=== PATIENT | female | born 1955 | race American Indian/Alaskan Native ===

== ENCOUNTER 2020-11-10 08:49 | Inpatient (IN) | payer OTHER ==
[2020-11-10] MEDS ORDERED: SODIUM CHLORIDE 0.9% 1000 ML 1,000 ML IV ONE ×2 (09:33)
[2020-11-10] MEDS ORDERED: ONDANSETRON 4 MG/2 ML INJ IV ONE (09:34)
--- NOTE | 2020-11-10 09:39 | Emergency Department Report ---
HPI - General Chief Complaint: Altered Mental Status Time Seen by Provider: 11/10/20 09:22 - HPI HPI: Room 21 The patient is a 65-year-old female present with a chief complaint of "thirst." The patient states she came to the emergency department because she has been thirsty since yesterday. Patient admits to nausea and vomiting. Patient states her daughter found her on the floor this morning. The patient states she remembers going to sleep last night and this morning she remembers waking up with her daughter standing over her. Patient states she is amnestic to the event. Patient admits to polydipsia but denies polyuria. Patient states she carries a diagnosis of prediabetes. ED Past Medical Hx - Past Medical History Previous Medical History?: Yes Hx Hypertension: Yes Hx Diabetes: No (Prediabetes) Hx of Cancer: Yes (Throat CA status post chemo) Hx Dementia: Yes - Surgical History Past Surgical History?: No - Family History Family history: no significant - Social History Smoking Status: Current Every Day Smoker (1 pack/day) Substance Use Type: None (Denies illicit drug use) - Medications Home Medications: Home Medications Medication Instructions Recorded Confirmed Last Taken Type Levothyroxine Sodium 75 mcg PO QAM 11/10/20 11/10/20 Unknown History Losartan Potassium 25 mg PO QDAY 11/10/20 11/10/20 Unknown History Rosuvastatin Calcium [Crestor] 40 mg PO QDAY 11/10/20 11/10/20 Unknown History amLODIPine [Norvasc] 10 mg PO DAILY 11/10/20 11/10/20 Unknown History hydroCHLOROthiazide [Hctz] 12.5 mg PO QDAY 11/10/20 11/10/20 Unknown History ED Review of Systems ROS: Stated complaint: AMS Other details as noted in HPI Constitutional: no symptoms reported Eyes: denies: eye pain ENT: denies: throat pain Respiratory: denies: shortness of breath Cardiovascular: denies: chest pain Endocrine: increased thirst. denies: increased urine Gastrointestinal: nausea, vomiting. denies: abdominal pain Genitourinary: denies: dysuria Musculoskeletal: denies: back pain Neurological: denies: headache Physical Exam - Physical Exam Vital Signs: Vital Signs 11/10/20 11/10/20 09:30 09:31 Temperature 98.2 F Pulse Rate 115 H Respiratory 24 Rate Blood Pressure 168/91 [Left] O2 Sat by Pulse 100 100 Oximetry Vital Signs 11/10/20 11/10/20 11/10/20 09:12 09:16 09:30 Temperature 98.2 F Pulse Rate 113 H 108 H 115 H Respiratory 26 H 26 H 24 Rate Blood Pressure 168/91 Blood Pressure 168/91 [Left] O2 Sat by Pulse 99 100 100 Oximetry 11/10/20 11/10/20 09:31 10:16 Temperature Pulse Rate 117 H Respiratory 22 Rate Blood Pressure 142/97 Blood Pressure [Left] O2 Sat by Pulse 100 100 Oximetry Physical Exam: GENERAL: The patient is well-developed well-nourished female lying on stretcher appearing fatigued but in no acute distress. [] HEENT: Normocephalic. Atraumatic. Extraocular motions are intact. NECK: Supple. Trachea midline CHEST/LUNGS: Clear to auscultation. There is no respiratory distress noted. HEART/CARDIOVASCULAR: Regular. There is tachycardia. There is no gallop rub or murmur. ABDOMEN: Abdomen is soft, nontender. Patient has normal bowel sounds. There is no abdominal distention. SKIN: There is no rash. There is no edema. There is no diaphoresis. NEURO: The patient is asleep but easily awakens to voice and becomes alert, and oriented. The patient is cooperative. The patient has no focal neurologic deficits. The patient has normal speech. GCS 14 MUSCULOSKELETAL: There is no evidence of acute injury. ED Course Vital Signs 11/10/20 11/10/20 09:30 09:31 Temperature 98.2 F Pulse Rate 115 H Respiratory 24 Rate Blood Pressure 168/91 [Left] O2 Sat by Pulse 100 100 Oximetry - Consultations Consultation #1: 11/10/20 12:33 [facility] paged 11/10/20 12:41 Case discussed with [facility] physician Dr. Brambila- may admit patient here at [facility] ED Medical Decision Making - Lab Data Result diagrams: 11/10/20 11:06 11/10/20 11:06 Laboratory Tests 11/10/20 11/10/20 11/10/20 08:57 11:06 11:06 WBC 14.6 H RBC 4.51 Hgb 12.1 Hct 38.0 MCV 84 MCH 27 L MCHC 32 RDW 19.4 H Plt Count 16 L* VBG pH Sodium 132 L Potassium 2.9 L* Chloride 88.0 L Carbon Dioxide 11 L Anion Gap 36 BUN 29 H Creatinine 1.6 H Estimated GFR 39 BUN/Creatinine Ratio 18 Glucose 587 H* POC Glucose 454 H Calcium 9.4 Total Bilirubin 4.10 H AST 59 H ALT 17 Alkaline Phosphatase 121 Total Creatine Kinase 315 H CK-MB (CK-2) 11.1 H CK-MB (CK-2) Rel Index 3.5 Troponin T 0.771 H* Total Protein 7.2 Albumin 4.5 Albumin/Globulin Ratio 1.7 Triglycerides 167 H Cholesterol 133 LDL Cholesterol Direct 71 HDL Cholesterol 52 Cholesterol/HDL Ratio 2.55 Lipase 46 11/10/20 11:06 WBC RBC Hgb Hct MCV MCH MCHC RDW Plt Count VBG pH 7.197 L* Sodium Potassium Chloride Carbon Dioxide Anion Gap BUN Creatinine Estimated GFR BUN/Creatinine Ratio Glucose POC Glucose Calcium Total Bilirubin AST ALT Alkaline Phosphatase Total Creatine Kinase CK-MB (CK-2) CK-MB (CK-2) Rel Index Troponin T Total Protein Albumin Albumin/Globulin Ratio Triglycerides Cholesterol LDL Cholesterol Direct HDL Cholesterol Cholesterol/HDL Ratio Lipase - EKG Data -: EKG Interpreted by In EKG shows normal: sinus rhythm Rate: tachycardia (107 bpm) - EKG Data When compared to previous EKG there are: previous EKG unavailable Interpretation: other (No ischemic changes seen) - Radiology Data Radiology results: report reviewed (CT head), image reviewed (CT head) [facility] [address] [place] [address] Cat Scan Report Signed Patient: DONN MARTINEZ MR#: [id number] : 1955 Acct:[id number] Age/Sex: 65 / F ADM Date: 11/10/20 Loc: ED Attending Dr: Ordering Physician: BARBRA HUNTLEY MD Date of Service: 11/10/20 Procedure(s): CT head/brain wo con Accession Number(s): [id number] cc: BARBRA HUNTLEY MD CT HEAD WITHOUT CONTRAST INDICATION / CLINICAL INFORMATION: Found on floor, amnestic to event. TECHNIQUE: Axial imaging performed from the skull apex through the skull base without the use of contrast. Sagittal and coronal reformatted images. All CT scans at this location are performed using CT dose reduction for ALARA by means of automated exposure control. COMPARISON: None available. FINDINGS: CEREBRAL PARENCHYMA: No significant abnormality. No acute territorial infarct. HEMORRHAGE: None. EXTRA-AXIAL SPACES: Normal in size and morphology for the patient's age. VENTRICULAR SYSTEM: Normal in size and morphology for the patient's age. MIDLINE SHIFT OR HERNIATION: None. CEREBELLUM / BRAINSTEM: No significant abnormality. CALVARIUM: No significant abnormality. ORBITS: Normal as visualized. PARANASAL SINUSES / MASTOID AIR CELLS: Normal as visualized. SOFT TISSUES of HEAD: No significant abnormality. ADDITIONAL FINDINGS: None. IMPRESSION: No acute intracranial abnormality. Signer Name: Martín Oneal Jr, MD Signed: 11/10/2020 10:49 AM Workstation Name: [id number] Transcribed By: TTR Dictated By: MARTÍN ONEAL JR, MD Electronically Authenticated By: MARTÍN ONEAL JR, MD Signed Date/Time: 11/10/20 104 DD/ 1048 TD/TT: Print Cancel - Differential Diagnosis Syncope, DKA, dehydration, electrolyte imbalance, gastritis, Critical care attestation.: If time is entered above; I have spent that time in minutes in the direct care of this critically ill patient, excluding procedure time. ED Disposition Clinical Impression: DKA (diabetic ketoacidosis), Thrombocytopenia, Elevated troponin Disposition: OP ADMIT IP TO THIS HOSP Is pt being admited?: Yes Does the pt Need Aspirin: Yes Condition: Stable Instructions: Diabetic Ketoacidosis (ED) Referrals: [facility] [Other] - 3-5 Days Time of Disposition: 12:42 (Hospitalist paged (Dr. Schaffer))
--- NOTE | 2020-11-10 10:53 | Cat Scan Report ---
CT HEAD WITHOUT CONTRAST INDICATION / CLINICAL INFORMATION: Found on floor, amnestic to event. TECHNIQUE: Axial imaging performed from the skull apex through the skull base without the use of cont rast. Sagittal and coronal reformatted images. All CT scans at this location are performed using CT dose reduction for ALARA by means of automated exposure control. COMPARISON: None available. FINDINGS: CEREBRAL PARENCHYMA: No significant abnormality. No acute territorial infarct. HEMORRHAGE: None. EXTRA-AXIAL SPACES: Normal in size and morphology for the patient's age. VENTRICULAR SYSTEM: Normal in size and morphology for the patient's age. MIDLINE SHIFT OR HERNIATION: None. CEREBELLUM / BRAINSTEM: No significant abnormality. CALVARIUM: No significant abnormality. ORBITS: Normal as visualized. PARANASAL SINUSES / MASTOID AIR CELLS: Normal as visualized. SOFT TISSUES of HEAD: No significant abnormality. ADDITIONAL FINDINGS: None. IMPRESSION: No acute intracranial abnormality. Signer Name: Martín Oneal Jr, MD Signed: 11/10/2020 10:49 AM Workstation Name: [id number]
[2020-11-10 11:47] LABS: Albumin 4.5 g/dL (3.9-5); Calcium 9.4 mg/dL (8.4-10.2); Creatine Kinase MB 11.1 ng/mL (0.0-4.0)
[2020-11-10 11:54] LABS: Hemoglobin 12.1 gm/dl (10.1-14.3); Mean Corpuscular HGB Conc 32 % (30-34); Mean Corpuscular Volume 84 fl (79-97); Red Blood Count 4.51 M/mm3 (3.65-5.03); Red Cell Distribution Width 19.4 % (13.2-15.2)
[2020-11-10] MEDS ORDERED: POTASSIUM CHLORIDE ER 20 MEQ TAB PO ONE (11:55)
[2020-11-10 12:06] LABS: Platelet Count 16 K/mm3 (140-440)
[2020-11-10 12:11] LABS: Chol/HDL Ratio 2.55 %
[2020-11-10] MEDS: POTASSIUM CHLORIDE 10 MEQ 10 MEQ/100 ML BAG IV SCH ×3 (12:17→14:20)
[2020-11-10] MEDS ORDERED: ASPIRIN 325 MG TAB PO ONE (12:42)
[2020-11-10] MEDS ORDERED: LIDOCAINE PF 100 MG/5 ML (CARDIAC SYRINGE) IV ONE (13:00)
[2020-11-10] MEDS ORDERED: EPINEPHrine 1 MG/10 ML SYRINGE ONE (13:00)
[2020-11-10] MEDS ORDERED: SODIUM BICARB 8.4% 50 MEQ/50 ML SYRINGE IV ONE (13:00)
[2020-11-10] MEDS ORDERED: INSULIN REGULAR, HUMAN 100 UNITS in SODIUM CHLORIDE 0.9% 99 ML IV SCH (13:00)
[2020-11-10] MEDS ORDERED: ATROPINE 0.1% (1 MG/10 ML) CARDIAC SYRINGE ONE (13:00)
[2020-11-10 13:23] LABS: Anisocytosis 1+; Band Neutrophils # (Manual) 0.6 K/mm3; Schistocytes Few; Total Cells Counted 100
[2020-11-10 13:24] LABS: Platelet Estimate Consistent w Auto
[2020-11-10 13:35] LABS: Bacteria,Urine 1+ /HPF (Negative); Bilirubin,Urine NEG (Negative); Blood,Urine LG (Negative); Color,Urine Amber (Yellow); Hyaline Casts,Urine 1 /LPF; Mucus,Urine FEW /HPF; Protein,Urine >500 mg/dL (Negative); Urobilinogen,Urine < 2.0 mg/dL (<2.0)
[2020-11-10] MEDS ORDERED: ETOMIDATE 20 MG/10 ML INJ IV ONE (14:46)
[2020-11-10] MEDS ORDERED: NORepinephrine/NS 4 MG-250 ML 4 MG/250 ML BAG IV ONE (15:34)
--- NOTE | 2020-11-10 15:34 | Event Note ---
Date: 11/10/20 Informed by nursing that the patient has become less responsive. As I enter the room the patient is grossly obtunded and does not respond to sternal rub. Patient bradycardic to 24 on the monitor. Patient was intubated by myself without meds as paralysis was not necessary. Patient then found to be in PEA. ACLS protocols were initiated. Patient received several rounds epinephrine and was defibrillated x1 with eventual return of spontaneous circulation. Hospitalist (Dr. Schaffer) was notified. Given patient's thrombocytopenia and change in mental status will order a CT head. This is discussed with Dr. Schaffer who states he will follow up on the results of the CAT scan Intubation note Consent was unobtainable due to patient condition Preoxygenation with 100% oxygen A size 7.0 mm ET tube was inserted orally on second attempt There was symmetric chest rise and bilateral breath sounds post intubation A CO2 indicator was used for confirmation and resulted in positive CO2 return Pulse oximetry post intubation was 90 ET tube was taped at 21 cm at the lips Post intubation chest x-ray confirmed good tube location The patient tolerated the procedure well There were no complications
--- NOTE | 2020-11-10 15:37 | Event Note ---
Date: 11/10/20 EDMD CODE BLUE note Patient became bradycardic and then PEA. ACLS protocols were reinitiated with eventual return of spontaneous circulation. Central line was placed by myself and the patient started on dopamine and Levophed. This was discussed with hospitalist Dr. Schaffer. Consent obtained Location: Right femoral The skin was prepped and draped in a sterile fashion. The skin and subcutaneous tissue was anesthetized with 1% lidocaine The needle was inserted blood was aspirated after first attempt Using the Seldinger technique a guidewire was inserted. A small incision was made and a dilator was placed. Blood return was good from all 3 ports. All ports were flushed with saline. The central venous line was secured in place with Sterile OpSite dressing was applied The patient tolerated the procedure well There were no complications
[2020-11-10] MEDS ORDERED: SODIUM CHLORIDE 0.9% 1000 ML 1,000 ML ONE (15:43)
--- NOTE | 2020-11-10 15:57 | Event Note ---
Date: 11/10/20 EDMD CODE BLUE note The patient again arrested and was found to be in asystole. ACLS protocols were continued however there was no return of spontaneous circulation. Patient .
[2020-11-10] MEDS ORDERED: NORepinephrine/NS 4 MG-250 ML 4 MG/250 ML BAG IV SCH (16:00)
[2020-11-10] MEDS ORDERED: DOPamine/D5W 800 MG/250 ML 800 MG/250 ML BAG IV SCH (16:00)
[2020-11-10] MEDS ORDERED: METOCLOPRAMIDE 10 MG/2 ML INJ IV PRN (17:51)
[2020-11-10 18:30] VITALS: BP 59/44
[2020-11-10] MEDS ORDERED: ACETAMINOPHEN 650 MG RECT SUPP PR PRN (18:30)
[2020-11-10] MEDS ORDERED: MORPHINE 2 MG/1 ML INJ IV PRN (18:30)
[2020-11-10] MEDS ORDERED: SODIUM CHLORIDE 0.9% 1000 ML 1,000 ML IV SCH (18:30)
[2020-11-10] MEDS ORDERED: HYDROmorphone 1 MG/1 ML INJ IV PRN (18:30)
--- NOTE | 2020-11-10 20:30 | History and Physical Report ---
History of Present Illness Date of examination: 11/10/20 Date of admission: 11/10/20 12:47 Chief complaint: Severe weakness and increased thirst and nausea vomiting for couple of days History of present illness: You do not have to copy them again [age]-year-old -[place] female with history of hypertension and hyperlipidemia has not been feeling well for the past 1 week. Patient has increased thirst and feeling very weak. Patient also has stable generalized weakness. Patient admits to nausea and vomiting. Patient was found on the floor by the daughter daughter brings her in. Patient is very noncompliant and does not see any primary care. Patient does not know that she has diabetes. No fever or chills. Altered sensorium and confusion present. Patient being admitted for high blood glucose levels of around 587. Patient looks emaciated and very ill. Summary of emergency Previous Medical History?: Yes --Hypertension: Yes --Diabetes: No (Prediabetes) --Throat cancer --Dementia: Yes - Surgical History Past Surgical History?: No - Family History Family history: no significant - Social History Smoking Status: Current Every Day Smoker (1 pack/day) Substance Use Type: None (Denies illicit drug use) - Medications Home Medications: Home Medications Medication Instructions Recorded Confirmed Last Taken Type Levothyroxine Sodium 75 mcg PO QAM 11/10/20 11/10/20 Unknown History Losartan Potassium 25 mg PO QDAY 11/10/20 11/10/20 Unknown History Rosuvastatin Calcium [Crestor] 40 mg PO QDAY 11/10/20 11/10/20 Unknown History amLODIPine [Norvasc] 10 mg PO DAILY 11/10/20 11/10/20 Unknown History hydroCHLOROthiazide [Hctz] 12.5 mg PO QDAY 11/10/20 11/10/20 Unknown History Review of Systems ROS: Constitutional no and generalized weakness polyuria polydipsia and polyphagia HEENT no sore throat no post nasal drip no diplopia Neck no neck stiffness no lymph gland enlargement Chest and lungs no shortness of breath cough or wheezing CVS no chest pain no diaphoresis no palpitations GI no nausea no vomiting no diarrhea Genitourinary system no dysuria no flank pain Musculoskeletal system no muscle pains no joint pains 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, some confusion to now this is my own Skin no rash no itching Psychiatric no depression no homicidal or suicidal tendencies Hematologic no lymphedema or bruising Endocrine no polydipsia no polyuria no cold intolerance no heat intolerance Medications and Allergies Allergies Allergy/AdvReac Type Severity Reaction Status Date / Time No Known Allergies Allergy Unverified 11/10/20 09:23 Home Medications Medication Instructions Recorded Confirmed Last Taken Type Levothyroxine Sodium 75 mcg PO QAM 11/10/20 11/10/20 Unknown History Losartan Potassium 25 mg PO QDAY 11/10/20 11/10/20 Unknown History Rosuvastatin Calcium [Crestor] 40 mg PO QDAY 11/10/20 11/10/20 Unknown History amLODIPine [Norvasc] 10 mg PO DAILY 11/10/20 11/10/20 Unknown History hydroCHLOROthiazide [Hctz] 12.5 mg PO QDAY 11/10/20 11/10/20 Unknown History Active Meds: Active Medications Acetaminophen (Acetaminophen 650 Mg Rect Supp) 650 mg NV Q6H PRN PRN Reason: Pain MILD(1-3)/Fever >100.5/BENAVIDES Insulin Human Regular 100 (units/ Sodium Chloride) 100 mls @ 8 mls/hr IV TITR RAYNE; Protocol Last Admin: 11/10/20 13:25 Dose: 8 units/hr, 8 mls/hr Documented by: Dopamine HCl/Dextrose (Intropin Drip 800 Mg/D5w 250 Ml) 800 mg in 250 mls @ 3.089 mls/hr IV TITR RAYNE; Protocol Norepinephrine (Levophed Drip 4 Mg/Ns 250 Ml) 4 mg in 250 mls @ 7.5 mls/hr IV TITR RAYNE; Protocol Sodium Chloride (Nacl 0.9% 1000 Ml) 1,000 mls @ 125 mls/hr IV DIRECT RAYNE Morphine Sulfate (Morphine 2 Mg/1 Ml Inj) 2 mg IV Q4H PRN PRN Reason: Pain, Moderate (4-6) Sodium Chloride (Sodium Chloride 0.9% 10 Ml Flush Syringe) 10 ml IV BID RAYNE Sodium Chloride (Sodium Chloride 0.9% 10 Ml Flush Syringe) 10 ml IV PRN PRN PRN Reason: LINE FLUSH Exam - Constitutional Vitals: Temp Pulse Resp BP Pulse Ox 98.2 F 107 H 23 59/44 93 11/10/20 09:30 11/10/20 15:45 11/10/20 15:45 11/10/20 15:45 11/10/20 15:15 General appearance: Present: mild distress, cachectic, disheveled - EENT Eyes: Present: PERRL ENT: hearing intact, clear oral mucosa, other (dry mucous membranes) - Neck Neck: Present: supple, normal ROM - Respiratory Respiratory effort: normal Respiratory: bilateral: CTA - Cardiovascular Heart rate: 98 Rhythm: regular Heart Sounds: Present: S1 & S2. Absent: rub, click - Extremities Extremities: pulses symmetrical, No edema Peripheral Pulses: within normal limits - Abdominal General gastrointestinal: Present: soft, non-tender, non-distended, normal bowel sounds Female genitourinary: Present: normal - Integumentary Integumentary: Present: clear, warm, dry - Musculoskeletal Musculoskeletal: generalized weakness - Psychiatric Psychiatric: other (Lethargic) - Neurologic Neurologic: CNII-XII intact, moves all extremities, other (Lethargic) - Allied Health Allied health notes reviewed: nursing, case management HEART Score - HEART Score Troponin: Troponin T 0.771 ng/mL (0.00-0.029) H* 11/10/20 11:06 Results - Labs CBC & Chem 7: 11/10/20 11:06 11/10/20 11:06 Labs: Laboratory Last Values WBC 14.6 K/mm3 (4.5-11.0) H 11/10/20 11:06 RBC 4.51 M/mm3 (3.65-5.03) 11/10/20 11:06 Hgb 12.1 gm/dl (10.1-14.3) 11/10/20 11:06 Hct 38.0 % (30.3-42.9) 11/10/20 11:06 MCV 84 fl (79-97) 11/10/20 11:06 MCH 27 pg (28-32) L 11/10/20 11:06 MCHC 32 % (30-34) 11/10/20 11:06 RDW 19.4 % (13.2-15.2) H 11/10/20 11:06 Plt Count 16 K/mm3 (140-440) L* 11/10/20 11:06 Add Manual Diff Complete 11/10/20 11:06 Total Counted 100 11/10/20 11:06 Seg Neuts % (Manual) 81.0 % (40.0-70.0) H 11/10/20 11:06 Band Neutrophils % 4.0 % 11/10/20 11:06 Lymphocytes % (Manual) 11.0 % (13.4-35.0) L 11/10/20 11:06 Monocytes % (Manual) 4.0 % (0.0-7.3) 11/10/20 11:06 Nucleated RBC % Not Reportable 11/10/20 11:06 Seg Neutrophils # Man 11.8 K/mm3 (1.8-7.7) H 11/10/20 11:06 Band Neutrophils # 0.6 K/mm3 11/10/20 11:06 Lymphocytes # (Manual) 1.6 K/mm3 (1.2-5.4) 11/10/20 11:06 Abs React Lymphs (Man) 0.0 K/mm3 11/10/20 11:06 Monocytes # (Manual) 0.6 K/mm3 (0.0-0.8) 11/10/20 11:06 Eosinophils # (Manual) 0.0 K/mm3 (0.0-0.4) 11/10/20 11:06 Basophils # (Manual) 0.0 K/mm3 (0.0-0.1) 11/10/20 11:06 Metamyelocytes # 0.0 K/mm3 11/10/20 11:06 Myelocytes # 0.0 K/mm3 11/10/20 11:06 Promyelocytes # 0.0 K/mm3 11/10/20 11:06 Blast Cells # 0.0 K/mm3 11/10/20 11:06 WBC Morphology Not Reportable 11/10/20 11:06 Hypersegmented Neuts Not Reportable 11/10/20 11:06 Hyposegmented Neuts Not Reportable 11/10/20 11:06 Hypogranular Neuts Not Reportable 11/10/20 11:06 Smudge Cells Not Reportable 11/10/20 11:06 Toxic Granulation Not Reportable 11/10/20 11:06 Toxic Vacuolation Not Reportable 11/10/20 11:06 Dohle Bodies Not Reportable 11/10/20 11:06 Pelger-Huet Anomaly Not Reportable 11/10/20 11:06 Nguyen Rods Not Reportable 11/10/20 11:06 Platelet Estimate Consistent w auto 11/10/20 11:06 Clumped Platelets Not Reportable 11/10/20 11:06 Plt Clumps, EDTA Not Reportable 11/10/20 11:06 Large Platelets Not Reportable 11/10/20 11:06 Giant Platelets Not Reportable 11/10/20 11:06 Platelet Satelliting Not Reportable 11/10/20 11:06 Plt Morphology Comment Not Reportable 11/10/20 11:06 RBC Morphology Not Reportable 11/10/20 11:06 Dimorphic RBCs Not Reportable 11/10/20 11:06 Polychromasia Not Reportable 11/10/20 11:06 Hypochromasia Not Reportable 11/10/20 11:06 Poikilocytosis Not Reportable 11/10/20 11:06 Anisocytosis 1+ 11/10/20 11:06 Microcytosis 1+ 11/10/20 11:06 Macrocytosis Not Reportable 11/10/20 11:06 Spherocytes Not Reportable 11/10/20 11:06 Pappenheimer Bodies Not Reportable 11/10/20 11:06 Sickle Cells Not Reportable 11/10/20 11:06 Target Cells Not Reportable 11/10/20 11:06 Tear Drop Cells Not Reportable 11/10/20 11:06 Ovalocytes Not Reportable 11/10/20 11:06 Helmet Cells Not Reportable 11/10/20 11:06 [place] Bodies Not Reportable 11/10/20 11:06 [place] Rings Not Reportable 11/10/20 11:06 Redd Cells Not Reportable 11/10/20 11:06 Bite Cells Not Reportable 11/10/20 11:06 Crenated Cell Not Reportable 11/10/20 11:06 Elliptocytes Not Reportable 11/10/20 11:06 Acanthocytes (Spur) Not Reportable 11/10/20 11:06 Rouleaux Not Reportable 11/10/20 11:06 Hemoglobin C Crystals Not Reportable 11/10/20 11:06 Schistocytes Few 11/10/20 11:06 Malaria parasites Not Reportable 11/10/20 11:06 Natanael Bodies Not Reportable 11/10/20 11:06 Hem Pathologist Commnt C 11/10/20 11:06 VBG pH 7.197 (7.320-7.420) L* 11/10/20 11:06 Sodium 132 mmol/L (137-145) L 11/10/20 11:06 Potassium 2.9 mmol/L (3.6-5.0) L* 11/10/20 11:06 Chloride 88.0 mmol/L (98-107) L 11/10/20 11:06 Carbon Dioxide 11 mmol/L (22-30) L 11/10/20 11:06 Anion Gap 36 mmol/L 11/10/20 11:06 BUN 29 mg/dL (7-17) H 11/10/20 11:06 Creatinine 1.6 mg/dL (0.6-1.2) H 11/10/20 11:06 Estimated GFR 39 ml/min 11/10/20 11:06 BUN/Creatinine Ratio 18 % 11/10/20 11:06 Glucose 587 mg/dL (65-100) H* 11/10/20 11:06 POC Glucose 549 mg/dL (70-105) H 11/10/20 14:34 Calcium 9.4 mg/dL (8.4-10.2) 11/10/20 11:06 Total Bilirubin 4.10 mg/dL (0.1-1.2) H 11/10/20 11:06 AST 59 units/L (5-40) H 11/10/20 11:06 ALT 17 units/L (7-56) 11/10/20 11:06 Alkaline Phosphatase 121 units/L (35-129) 11/10/20 11:06 Total Creatine Kinase 315 units/L (30-135) H 11/10/20 11:06 CK-MB (CK-2) 11.1 ng/mL (0.0-4.0) H 11/10/20 11:06 CK-MB (CK-2) Rel Index 3.5 (0-4) 11/10/20 11:06 Troponin T 0.771 ng/mL (0.00-0.029) H* 11/10/20 11:06 Total Protein 7.2 g/dL (6.3-8.2) 11/10/20 11:06 Albumin 4.5 g/dL (3.9-5) 11/10/20 11:06 Albumin/Globulin Ratio 1.7 % 11/10/20 11:06 Triglycerides 167 mg/dL (2-149) H 11/10/20 11:06 Cholesterol 133 mg/dL (50-199) 11/10/20 11:06 LDL Cholesterol Direct 71 mg/dL (50-130) 11/10/20 11:06 HDL Cholesterol 52 mg/dL (40-59) 11/10/20 11:06 Cholesterol/HDL Ratio 2.55 % 11/10/20 11:06 Lipase 46 units/L (13-60) 11/10/20 11:06 Urine Color Angélica (Yellow) 11/10/20 Unknown Urine Turbidity Slightly-cloudy (Clear) 11/10/20 Unknown Urine pH 6.0 (5.0-7.0) 11/10/20 Unknown Ur Specific [place] 1.013 (1.003-1.030) 11/10/20 Unknown Urine Protein >500 mg/dL (Negative) 11/10/20 Unknown Urine Glucose (UA) >=500 mg/dL (Negative) 11/10/20 Unknown Urine Ketones Neg mg/dL (Negative) 11/10/20 Unknown Urine Blood Lg (Negative) 11/10/20 Unknown Urine Nitrite Neg (Negative) 11/10/20 Unknown Urine Bilirubin Neg (Negative) 11/10/20 Unknown Urine Urobilinogen < 2.0 mg/dL (<2.0) 11/10/20 Unknown Ur Leukocyte Esterase Neg (Negative) 11/10/20 Unknown Urine WBC (Auto) 12.0 /HPF (0.0-6.0) H 11/10/20 Unknown Urine RBC (Auto) 7.0 /HPF (0.0-6.0) 11/10/20 Unknown U Epithel Cells (Auto) 1.0 /HPF (0-13.0) 11/10/20 Unknown Urine Bacteria (Auto) 1+ /HPF (Negative) 11/10/20 Unknown Hyaline Casts 1 /LPF 11/10/20 Unknown Urine Mucus Few /HPF 11/10/20 Unknown Short CBC 11/10/20 Range/Units 11:06 WBC 14.6 H (4.5-11.0) K/mm3 Hgb 12.1 (10.1-14.3) gm/dl Hct 38.0 (30.3-42.9) % Plt Count 16 L* (140-440) K/mm3 BMP 11/10/20 11:06 Sodium 132 L Potassium 2.9 L* Chloride 88.0 L Carbon Dioxide 11 L BUN 29 H Creatinine 1.6 H Glucose 587 H* Calcium 9.4 Cardiac Enzymes 11/10/20 Range/Units 11:06 Total Creatine Kinase 315 H (30-135) units/L CK-MB (CK-2) 11.1 H (0.0-4.0) ng/mL Troponin T 0.771 H* (0.00-0.029) ng/mL Liver Function 11/10/20 Range/Units 11:06 Total Bilirubin 4.10 H (0.1-1.2) mg/dL AST 59 H (5-40) units/L ALT 17 (7-56) units/L Alkaline Phosphatase 121 (35-129) units/L Albumin 4.5 (3.9-5) g/dL Urine 11/10/20 Range/Units Unknown Urine Color Angélica (Yellow) Urine pH 6.0 (5.0-7.0) Ur Specific [place] 1.013 (1.003-1.030) Urine Protein >500 (Negative) mg/dL Urine Glucose (UA) >=500 (Negative) mg/dL - Imaging and Cardiology EKG: report reviewed Assessment and Plan Assessment and plan: The high probability OF a clinically significant sudden or life-threatening deterioration of the cardiorespiratory system and endocrine system required my full and direct attention, intervention and postoperative management. The aggregate critical care time was 40 minutes. The time is in addition to time spent performing reported procedures but includes the followin: Data review and interpretation 2: Patient assessment and monitoring of vital signs 3: Documentation 4:: Medication orders and management Advance Directives: Yes (Full code) Plan of care discussed with patient/family: Yes - Patient Problems (1) DKA (diabetic ketoacidosis) Current Visit: Yes Status: Acute Plan to address problem: DKA protocol initiated Patient is very sick IV fluids and IV potassium initiated (2) Thrombocytopenia Current Visit: Yes Status: Acute Plan to address problem: Etiology unclear Possible ITP (3) Hypokalemia Current Visit: Yes Status: Acute Plan to address problem: Supplemented aggressively (4) ARLIN (acute kidney injury) Current Visit: Yes Status: Acute Plan to address problem: Secondary to vasomotor nephropathy and volume depletion IV fluids for now (5) Malnutrition Current Visit: Yes Status: Chronic Qualifiers: Protein-calorie malnutrition severity: moderate Plan to address problem: Dietitian consult for diabetes and malnutrition (6) DVT prophylaxis Current Visit: Yes Status: Acute Plan to address problem: SCDs and GI prophylaxis
--- NOTE | 2020-11-10 20:52 | Event Note ---
Date: 11/10/20 Patient coded multiple times--4 times ACLS protocol was followed Patient was intubated Epinephrine and sodium bicarbonate was given On the fourth attempt patient could not be revived Talk with the daughter and the patient's mother at length and explained to them the sequence of events Time of [address] Cruz Certifying physician Dr. Schaffer
--- NOTE | 2020-11-10 20:54 | Death Summary ---
Summary - Providers Date of service: 11/10/20 Attending: LISETH BEST - summary Date of admission: 11/10/20 12:47 Date of : 11/10/20 Reason for admission: DKA, metabolic acidosis, hypokalemia, thrombocytopenia Significant findings: Blood glucose of 587, platelet count of 18,000 Procedures/treatments rendered: DKA protocol with IV insulin and IV fluids Pertinent studies: Head CT Disposition: Cardiorespiratory arrest secondary to DKA, hypokalemia and metabolic acidosis - Final diagnosis (1) DKA (diabetic ketoacidosis) Note: Final diagnosis: (2) Thrombocytopenia Note: Final diagnosis: (3) Hypokalemia Note: Final diagnosis: (4) ARLIN (acute kidney injury) Note: Final diagnosis: (5) Malnutrition Qualifiers: Protein-calorie malnutrition severity: moderate Note: Final diagnosis: (6) DVT prophylaxis Note: Final diagnosis:
[2020-11-10] MEDS ORDERED: FAMOTIDINE 20 MG/2 ML INJ IV SCH (22:00)
--- NOTE | 2020-11-11 17:47 | Electrocardiograph Report ---
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 No previous ECG available for comparison Electronically Signed On 11-11-2020 17:47:25 EDT by Guido Ibanez
== END 2020-11-10 16:50 | DRG 637 ==
LOC: ED 08:49 → CC1 12:47
PROVIDERS: ADMIT Internal Medicine; ATTEND Internal Medicine
PROC: 06HY33Z Insertion of Infusion Device into Lower Vein, Percutaneous Approach (ICD-10-PCS; principal; 2020-11-10)
PROC: 5A1935Z Respiratory Ventilation, Less than 24 Consecutive Hours (ICD-10-PCS; 2020-11-10)
PROC: 0BH17EZ Insertion of Endotracheal Airway into Trachea, Via Natural or Artificial Opening (ICD-10-PCS; 2020-11-10)
DX: E11.10 Type 2 diabetes mellitus with ketoacidosis without coma (principal); N17.0 Acute kidney failure with tubular necrosis; E44.0 Moderate protein-calorie malnutrition; E87.6 Hypokalemia; D69.6 Thrombocytopenia, unspecified; I10 Essential (primary) hypertension; I46.9 Cardiac arrest, cause unspecified; Z68.29 Body mass index [BMI] 29.0-29.9, adult
CPT/HCPCS: 36415; 70450; 80053; 80061; 81001; 82550; 82553; 82805; 82962; 83690; 84484; 85007; 85025; 87086; 93005; 94002; 94003; 96361; 96374; G0378; J0171; J0461; J1815; J2001; J2405; J3480; J7030